=== PATIENT | male | born 1995 | race Caucasian/White ===

== ENCOUNTER 2016-06-30 13:59 | Emergency (ER) | payer SELFPAY | END 2016-06-30 14:40 | disposition home or self-care (01) | LOC: ER1 13:59 | DX: M10.9 Gout, unspecified (principal); F17.210 Nicotine dependence, cigarettes, uncomplicated; Z79.899 Other long term (current) drug therapy | CPT/HCPCS: 96372; 99283; J1100; J1885 ==

== ENCOUNTER 2016-11-17 21:08 | Emergency (ER) | payer OTHER ==
[2016-11-17 21:59] LABS: HEMOGLOBIN 17.3 gm/dl (14.0-17.5); RED BLOOD COUNT 5.17 M/UL (4.20-5.50)
[2016-11-17 22:16] LABS: BUN/CREATININE RATIO 14 (0-10)
== END 2016-11-17 22:47 | disposition home or self-care (01) ==
LOC: ER1 21:08
PROVIDERS: Physician Assistant Medical
DX: L03.311 Cellulitis of abdominal wall (principal); F17.210 Nicotine dependence, cigarettes, uncomplicated
CPT/HCPCS: 36415; 80053; 82150; 83690; 85025; 99283; J7030; J7050; Q9963